=== PATIENT | male | born 1955 | race Caucasian/White ===

== ENCOUNTER → 2016-07-08 | Day surgery (SDC) | payer OTHER ==
[~2016-07-08] MED LIST: ASPIRIN81 M2 PO; FISH OIL OMEGA1 EAC1; LOSARTAN-HCTZ1 EACH PO; ONE DAILY MULT1 EAC2; VITAMIN C1000 M2 PO; VITAMIN D250000 UNIT PO; ZESTORETIC 10-1 EACH PO
--- NOTE | ~2016-07-08 | OR ---
Unit #: [id number] #: [id number] Patient: KARL SELLERS [id number] [address] [address] [id number] O MR#: [id number] NAME: KARL SELLERS ROOM: Date of Procedure: 07/08/2016 Admission Date: 07/08/2016 Surgeon: Magdiel Bejarano M.D. : 1955 Attending Physician: Magdiel Bejarano M.D. Primary Care Physician: Eladio Ritchie M.D. OPERATIVE REPORT PREOPERATIVE DIAGNOSIS Screening colonoscopy. POSTOPERATIVE DIAGNOSIS Screening colonoscopy. PROCEDURES PERFORMED 1. Colonoscopy to the cecum. 2. Polypectomy with electrocautery snare at 10 cm with hemoclip placement. 3. Polypectomy with electrocautery snare at 7 cm. ANESTHESIA Monitored anesthesia care. FINDINGS The patient was found to have an occasional sigmoid diverticulum. There were mild internal hemorrhoids present. A 7 to 8 mm polyp was excised at 10 cm with electrocautery snare with good hemostasis and hemoclip placement. Another polyp was excised approximately 7 mm in size at 7 cm with electrocautery snare. SPECIMENS Sent to pathology. COMPLICATIONS None apparent. CONDITION The patient tolerated the procedure well. INDICATIONS FOR PROCEDURE The patient is a 60-year-old white male, who has never had a colonoscopy. He presents at this time for screening colonoscopy. DESCRIPTION OF PROCEDURE After obtaining informed consent, the patient was brought to the endoscopy suite and after adequate monitored anesthesia care, had the colonoscope placed through the anus and advanced to the level of the cecum without difficulty with the lumen always in view. The ileocecal valve and cecum were normal. The ascending colon was normal as was the hepatic flexure, transverse colon, splenic flexure, and descending colon. In the sigmoid colon, there were few scattered diverticula. They were not very numerous. Unit #: [id number] #: [id number] Patient: KARL SELLERS The rectosigmoid and rectum were all normal until at 10 cm, there was a 7 mm polyp present. It was excised completely with electrocautery snare with good hemostasis and was retrieved and sent to pathology. A hemoclip was placed on the stalk to ensure good hemostasis. Another polyp was found at 7 cm. It was excised completely with electrocautery snare, retrieved with a mucus trap, and sent to pathology. There was good hemostasis. On retroflexion in the rectum to the anorectal junction, there were some mild internal hemorrhoids seen. The scope was removed without difficulty. The patient tolerated the procedure well and went from the endoscopy suite to the recovery area in stable condition. RECOMMENDATIONS High-fiber diet, lots of liquids, tucks or wipes p.r.n. Diverticular sheet given. Call Tuesday for pathology. Dictated by... Radhika London/caterina TD: 07/09/2016 06:08 JOB #: [id number] [facility] OPERATIVE REPORT Page 1 of 1 X Magdiel Bejarano MD X PROCEDURE OPERATIVE NOTE
== END | disposition home or self-care (01) ==
LOC: COPS 08:48
DX: Z12.11 Encounter for screening for malignant neoplasm of colon (principal); D12.6 Benign neoplasm of colon, unspecified; K57.30 Diverticulosis of large intestine without perforation or abscess without bleeding; K64.8 Other hemorrhoids; I10 Essential (primary) hypertension; Z79.82 Long term (current) use of aspirin; Z79.899 Other long term (current) drug therapy
CPT/HCPCS: 88305; J2250